=== PATIENT | female | born 1940 | race Caucasian/White ===

== ENCOUNTER 2024-05-02 22:33 | Emergency (ER) | payer MEDICARE, BC, SELFPAY ==
[2024-05-02 22:35] VITALS: BP 133/93; PULSE 61; RESP 18; TEMP 36.2; O2SAT 100; BMI 23.7
--- NOTE | 2024-05-02 22:42 | EX.ED.UPPERE ---
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 Home Medications ?Medication ?Instructions ?Recorded ?Last Taken ?Type apixaban 2.5 mg tablet (Eliquis) 2.5 mg PO BID 11/14/22 Unknown History aspirin 81 mg tablet,delayed 81 mg PO DAILY 11/14/22 Unknown History release (Adult Low Dose Aspirin) calcium 600 mg (as 1 tab PO DAILY 11/14/22 Unknown History carbonate)-vitamin D3 20 mcg (800 unit) tablet cholecalciferol (vitamin D3) 25 25 mcg PO DAILY 11/14/22 Unknown History mcg (1,000 unit) capsule darbepoetin alex in polysorbat 40 40 mcg subcut QWEEK 11/14/22 Unknown History mcg/mL in polysorbate injection (Aranesp) denosumab 60 mg/mL subcutaneous 60 mg subcut [id number] 11/14/22 Unknown History syringe (Prolia) diltiazem HCl 120 mg 240 mg PO BID 11/14/22 Unknown History capsule,extended release 12 hr loratadine 10 mg tablet (Claritin) 10 mg PO DAILY 11/14/22 Unknown History magnesium citrate,mag oxide 250 mg 250 mg PO DAILY 11/14/22 Unknown History capsule multivitamin 1 tab PO DAILY 11/14/22 Unknown History omega 7-nmp-ukd-fish oil 300 1 cap PO DAILY 11/14/22 Unknown History mg-1,000 mg capsule (Fish Oil) potassium gluconate 550 mg (90 mg) 550 mg PO DAILY 11/14/22 Unknown History tablet Allergy/AdvReac Type Severity Reaction Status Date / Time house dust mite Allergy Sneezing, Verified 05/02/24 22:35 congestion Iodinated Contrast Media Allergy NEEDS Verified 05/02/24 22:35 FOLLOW-UP latex Allergy Rash Verified 05/02/24 22:35 mold Allergy Sneezing, Verified 05/02/24 22:35 congestion pollen extracts Allergy Sneezing, Verified 05/02/24 22:35 congestion Family History Sister Heart disease Mother Irregular heartbeat Father Lung cancer Surgical History History of appendectomy History of section History of discectomy History of laminectomy History of tonsillectomy History of transcatheter aortic valve replacement (TAVR) Social History Smoking Status: Never smoker alcohol intake: current alcohol intake frequency: a few times a week Alcohol type: wine substance use type: does not use EXAM Physical Exam Const Vital Signs: 05/02/24 22:35 Temperature 97.1 F L Temperature Source Temporal Pulse Rate 61 Respiratory Rate 18 Blood Pressure 133/93 H Blood Pressure Mean 106 Pulse Ox 100 Oxygen Delivery Method Room Air MDM MDM MDM Narrative Medical decision making narrative: HISTORY OF PRESENT ILLNESS: 83-year-old female presents with concern for bruising and that she describes blood clots to the left upper extremity. Denies any trauma. Denies any swelling of the left upper extremity. Notes compliance with Eliquis. Denies chest pain or shortness of breath. Patient denies active cancer, being bedridden for greater than 3 days, denies unilateral leg swelling, denies any varicose veins, denies any calf tenderness, denies tenderness along deep venous system. Denies major surgery within 12 weeks, recent paralysis, previous DVT. REVIEW OF SYSTEMS: Pertinent positives: Ecchymosis to left upper arm Pertinent negatives: Arm swelling, chest pain, shortness of breath PHYSICAL EXAM: Nursing triage notes reviewed, Vital signs reviewed Constitutional: please see mdm Extremities: No edema, no gross deformities, intact pulses in bilateral upper extremities Neuro: Intact 5/5 strength with ok sign (median), intact finger abduction (ulnar) intact wrist extension (radial n). Intact sensation in the radial, ulnar, and median nerve distributions. Skin: There are 2 discrete areas on the anterior surface of the mid forearm there are approximately 2 x 2 cm in diameter that are consistent with ecchymosis. There is no overlying erythema. There is no fluctuance, induration, warmth or signs of infection. MEDICAL DECISION MAKING: Chief Complaint: Concern for blood clots External records reviewed: Reviewed prior allergies, problem list, current medications Factors affecting care: History of TAVR on Eliquis Social determinants of health: none History obtained from others: none Consults: none [facility] Narrative: The patient was hemodynamically stable, afebrile and nontoxic-appearing. Exam consistent with likely ecchymosis. There is no sign of unilateral limb swelling. The patient had no DVT risk factors. She is already on appropriate treatment for DVT. Did offer outpatient DVT scan given we cannot perform scan at this time. Patient noted she did not need the scan at this time if I am confident that her pathology is ecchymosis. I reiterated that her clinical exam is most consistent with bruising. I reiterated she does not require an ultrasound at this time. Ecchymosis home care discussed. DVT signs discussed. PE signs discussed. Return precautions discussed. The patient and/or family, caregivers express understanding. The patient and/or family, caregivers agrees with the plan. Shared decision making: I will have a discussion with the patient and or visitors regarding risk/benefits of further testing or admission. They will be made aware of of the risk/benefits inherent in this decision they will be given the opportunity to voice understanding. Total critical care time today provided was at least 0 minutes. This excludes separately billable procedures. Critical care time (if documented) is secondary to the patient having high probability of clinically significant/life threatening deterioration in the patient's condition which required my urgent intervention. Impression: 1. Left arm ecchymosis 2. History of anticoagulation Dispo: Discharge This note was generated with [employer] dictation software. It may contain incorrect words, spelling, and punctuation that were not noted in review of the chart prior to signing. Discharge Plan Triage Chief Complaint: Upper Extremity Injury ED Provider: Jose García Dx/Rx/DC Orders Prescriptions: No Action loratadine [Claritin] 10 mg tablet 10 mg PO DAILY calcium carbonate-vitamin D3 600 mg-20 mcg (800 unit) tablet 1 tab PO DAILY magnesium citrate,mag oxide 250 mg capsule 250 mg PO DAILY potassium gluconate 550 mg (90 mg) tablet 550 mg PO DAILY omega 0-eqn-col-fish oil [Fish Oil] 300-1,000 mg capsule 1 cap PO DAILY multivitamin Tablet 1 tab PO DAILY Prolia 60 mg/mL syringe 60 mg subcut [id number] Aranesp (in polysorbate) 40 mcg/mL solution 40 mcg subcut QWEEK Patient Comments: dose unknown diltiazem HCl 120 mg capsule,extended release 12 hr 240 mg PO BID Eliquis 2.5 mg tablet 2.5 mg PO BID aspirin [Adult Low Dose Aspirin] 81 mg tablet,delayed release (DR/EC) 81 mg PO DAILY cholecalciferol (vitamin D3) 25 mcg (1,000 unit) capsule 25 mcg PO DAILY Other Ambulatory Orders: Venous Duplex US, Unilateral (Stat) Facility: [facility] - Location: [facility] Ordered By: Dr. Jose García Print Language: [place]
== END 2024-05-02 23:04 | disposition home or self-care (01) ==
PROVIDERS: Emergency Provider Emergency Medicine; Visit Provider Emergency Medicine
DX: S40.022A Contusion of left upper arm, initial encounter (principal); I48.91 Unspecified atrial fibrillation; Z79.01 Long term (current) use of anticoagulants; X58.XXXA Exposure to other specified factors, initial encounter
CPT/HCPCS: 99282